=== PATIENT | female | born 1980 | race Caucasian/White ===

== ENCOUNTER 2019-10-07 18:59 | Emergency (ER) | payer SELFPAY ==
--- NOTE | 2019-10-07 20:27 | RAD ---
EXAM: XR Left Tibia and Fibula, 2 Views CLINICAL HISTORY: 39 years old Female; LLE pain s/p fall.. TECHNIQUE: Frontal and lateral views of the left tibia and fibula. COMPARISON: No relevant prior studies available. FINDINGS: BONES/JOINTS: No acute fracture seen. Normal bony alignment. SOFT TISSUES: Favor mild soft tissue swelling/hematoma overlying the medial knee. No radiopaque foreign body seen. Moderate diffuse subcutaneous edema. IMPRESSION: - No acute fracture seen. - Moderate diffuse subcutaneous edema. Of uncertain clinical significance. Clinical correlation is suggested. Thank you for allowing us to participate in the care of this patient. Electronically signed by: Jewel Chong MD 10/07/2019 8:25 PM [employer]
--- NOTE | 2019-10-07 20:28 | RAD ---
EXAM: XR Left Knee Complete, 3 Views CLINICAL HISTORY: 39 years old Female; left knee pain s/p fall. TECHNIQUE: Frontal, lateral and oblique views of the left knee. COMPARISON: No relevant prior studies available. FINDINGS: BONES/JOINTS: No acute fracture seen. Normal bony alignment. SOFT TISSUES: Some soft tissue swelling/hematoma overlying the medial knee. No radiopaque foreign body seen. Moderate diffuse subcutaneous edema. IMPRESSION: - No acute fracture seen. Internal derangement cannot be ruled out. - Moderate diffuse subcutaneous edema. Of uncertain clinical significance. Clinical correlation is suggested. Thank you for allowing us to participate in the care of this patient. Electronically signed by: Jewel Chong MD 10/07/2019 8:27 PM [facility]
[2019-10-07 20:59] VITALS: TEMP 97.8
--- NOTE | 2019-10-07 21:36 | ED.PDOC ---
History of Present Illness - General Chief Complaint: Lower Extremity Injury Stated Complaint: left lower leg pain after fall Time Seen by Provider: 10/07/19 19:49 Source: patient, RN notes reviewed, Vital Signs reviewed, family - Her friend Exam Limitations: no limitations - History of Present Illness Initial Comments: Patient presents with complaints of left knee and left calf pain status post fall from a scooter x3 over the last couple of days. Patient states that the pain is worsening. It is throbbing in nature. It is moderate in severity. It radiates down the leg and up to the thigh. Worse with attempted walking or standing. Better when she rests and elevates it. Pain - Lower Extremity: moderate: Left Knee, Left Calf Method of Injury: fell Improving Factors: rest Worsening Factors: movement Associated Symptoms: None Home Medications: Ambulatory Orders Acetaminophen W/ Codeine [Tylenol W/ CODEINE #3] 1 ea PO Q6H #12 10/07/19 Review of Systems - Review of Systems Constitutional: States: no symptoms reported, see HPI EENTM: States: no symptoms reported Respiratory: States: no symptoms reported Cardiology: States: no symptoms reported Gastrointestinal/Abdominal: States: no symptoms reported Genitourinary: States: no symptoms reported Musculoskeletal: States: see HPI, joint pain, muscle pain, muscle stiffness. 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, Hx Congestive Heart Failure: No Hx Pacemaker: No Hx Hypertension: Yes Hx Thyroid Disease: No Hx Diabetes: No Hx Gastroesophageal Reflux: No Hx Renal Disease: Yes - 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, Hx Cancer: No Hx of HIV: No Hx Hepatitis C: No Hx MRSA: No Surgical History: appendectomy, other - Vaccination History Hx Tetanus, Diphtheria Vaccination: No Hx Influenza Vaccination: No Hx Pneumococcal Vaccination: Yes Immunizations Up to Date: Yes - Social History Hx Tobacco Use: No Hx Alcohol Use: No Hx Substance Use: No Hx Substance Use Treatment: No Hx Depression: No Feels Threatened In Home Enviroment: No Feels Threatened In a Relationship: No Hx Physical Abuse: No Hx Emotional Abuse: No Hx Suspected Abuse: No - Activities of Daily Living Hospice Agency (if applicable):: None - Female History Patient is a Female of Child Bearing Age (10 -59 yrs old): Yes Patient : No Family Medical History - Family History Mother Family History: No Known Physical Exam - Physical Exam General Appearance: Alert, Anxious, Restless, Well Developed, Well Groomed, Well Hydrated, Well Nourished Eyes, Ears, Nose, Throat: PERRL/EOMI, normal ENT inspection, pharynx normal Neck: non-tender, full range of motion, supple, normal inspection Cardiovascular/Respiratory: regular rate, rhythm, no M/R/G, normal peripheral pulses, no JVD, normal breath sounds, no respiratory distress Gastrointestinal/Abdominal: non-tender, no organomegaly Back: normal inspection, no CVA tenderness, no vertebral tenderness Thigh/Hip: normal inspection, non-tender, no evidence of injury Leg: normal inspection, non-tender, no evidence of injury, normal ROM Knee: bone tenderness, limited ROM, pain, soft tissue tenderness, other - Patient with tenderness to palpation of the calf also. Ankle: normal inspection, non-tender, no evidence of injury, normal ROM Foot: normal inspection, non-tender, no evidence of injury, normal ROM Neuro/Tendon: normal sensation, normal motor functions, normal tendon functions, responds to pain Mental Status: alert, oriented x 3 Skin: normal color, warm/dry Progress - Progress Progress: Differential diagnosis: Tibial plateau fracture, gastrocnemius tear, tendon rupture, hematoma among others. 10/07/19 21:41 Patient's pain is improved after pain medications. We have Aaron wrap the leg and that is also improved the pain. Plan on discharge home with follow-up with PCP. Will discharge home with a prescription for pain medication. I discussed this plan of care with the patient she voices understanding and agreement. Bon Ramos M.D. #[id number] - Results/Orders Results/Orders: EXAM: XR Left Knee Complete, 3 Views CLINICAL HISTORY: 39 years old Female; left knee pain s/p fall. TECHNIQUE: Frontal, lateral and oblique views of the left knee. COMPARISON: No relevant prior studies available. FINDINGS: BONES/JOINTS: No acute fracture seen. Normal bony alignment. SOFT TISSUES: Some soft tissue swelling/hematoma overlying the medial knee. No radiopaque foreign body seen. Moderate diffuse subcutaneous edema. IMPRESSION: - No acute fracture seen. Internal derangement cannot be ruled out. - Moderate diffuse subcutaneous edema. Of uncertain clinical significance. Clinical correlation is suggested. Thank you for allowing us to participate in the care of this patient. Electronically signed by: Jewel Chong MD 10/07/2019 8:27 PM [employer] EXAM: XR Left Tibia and Fibula, 2 Views CLINICAL HISTORY: 39 years old Female; LLE pain s/p fall.. TECHNIQUE: Frontal and lateral views of the left tibia and fibula. COMPARISON: No relevant prior studies available. FINDINGS: BONES/JOINTS: No acute fracture seen. Normal bony alignment. SOFT TISSUES: Favor mild soft tissue swelling/hematoma overlying the medial knee. No radiopaque foreign body seen. Moderate diffuse subcutaneous edema. IMPRESSION: - No acute fracture seen. - Moderate diffuse subcutaneous edema. Of uncertain clinical significance. Clinical correlation is suggested. Thank you for allowing us to participate in the care of this patient. Electronically signed by: Jewel Chong MD 10/07/2019 8:25 PM [employer] Departure - Departure Clinical Impression: Lower extremity edema Left knee sprain Qualifiers: Encounter type: initial encounter Involved ligament of knee: unspecified ligament Qualified Code(s): S83.92XA - Sprain of unspecified site of left knee, initial encounter Fall Qualifiers: Encounter type: initial encounter Qualified Code(s): W19.XXXA - Unspecified fall, initial encounter Hematoma of left lower extremity Qualifiers: Encounter type: initial encounter Qualified Code(s): S80.12XA - Contusion of left lower leg, initial encounter Time of Disposition: 21:44 Disposition: Discharge to Home or Self Care Condition: Good Departure Forms: ED Discharge - Pt. Copy, Patient Portal Self Enrollment Instructions: DI for Leg Pain, Contusion (DC), Knee Sprain (DC) Referrals: ANU JOSEPH [Primary Care Provider] - 1 Week Prescriptions: Acetaminophen W/ Codeine [Tylenol W/ CODEINE #3] 1 ea PO Q6H #12 Home Medications: Ambulatory Orders Acetaminophen W/ Codeine [Tylenol W/ CODEINE #3] 1 ea PO Q6H #12 10/07/19
[2019-10-07] MEDS ORDERED: HYDROcodone 5MG/APAP 325MG 1 EA TAB PO ONE (21:52)
[2019-10-07 22:34] VITALS: BP 136/97; O2SAT 100
== END 2019-10-07 22:33 | disposition home or self-care (01) ==
LOC: ER 18:59
DX: S83.92XA Sprain of unspecified site of left knee, initial encounter (principal); S80.12XA Contusion of left lower leg, initial encounter; R60.0 Localized edema; R56.9 Unspecified convulsions; J44.9 Chronic obstructive pulmonary disease, unspecified; I12.9 Hypertensive chronic kidney disease with stage 1 through stage 4 chronic kidney disease, or unspecified chronic kidney disease; N18.9 Chronic kidney disease, unspecified; Z79.899 Other long term (current) drug therapy; V00.141A Fall from scooter (nonmotorized), initial encounter; Y92.9 Unspecified place or not applicable